=== PATIENT | female | born 1985 | race African-American/Black ===

== ENCOUNTER 2022-04-12 18:23 | Emergency (ER) | payer OTHER ==
[2022-04-12 18:33] VITALS: BP 107/71; PULSE 72; RESP 18; TEMP 98; BMI 32.8
[2022-04-12] MEDS ORDERED: SODIUM CHLORIDE 1,000 ML IV STA (20:05)
[2022-04-12] MEDS ORDERED: FAMOTIDINE 20 MG/50 ML IVPB 20 MG/50 ML MG IVPB ONE ×2 (20:23→20:48)
[2022-04-12] MEDS ORDERED: MAG HYDROX/AL HYDROX/SIMETH 30 ML UNIT-DOSE CUP PO ONE (20:23)
[2022-04-12] MEDS ORDERED: MAG HYDROX/AL HYDROX/SIMETH 30 ML UNIT-DOSE CUP ONE (20:48)
[2022-04-12 20:53] LABS: BASO % 1.1 % (0-2.0); HEMATOCRIT 34.7 % (32.4-45.2); HEMOGLOBIN 10.9 GM/dL (10.7-15.3); LYMPH % 27.5 % (8-40); MCHC 31.4 g/dl (32.0-36.0); MEAN CELL VOLUME 73.1 fl (80-96); MEAN PLT VOLUME 7.5 fl (7.5-11.1); MONO % 12.3 % (3.8-10.2); NEUT % 57.1 % (42.8-82.8); PLATELET COUNT 273 10^3/uL (134-434); RBC 4.75 M/mm3 (3.60-5.2); RDW 15.6 % (11.6-15.6); WHITE BLOOD COUNT 7.3 K/mm3 (4.0-10.0)
[2022-04-12 20:57] LABS: EPI CELLS >36 /uL (0-25.1); HYALINE CASTS 4 /uL (0-3.1); PH,URINE 6.5 (5.0-8.0); URINE APPEARANCE CLOUDY; URINE BACTERIA 668 /uL (0-1359); URINE BILIRUBIN NEGATIVE (NEGATIVE); URINE COLOR DK YELLOW; URINE GLUCOSE (UA) NEGATIVE (NEGATIVE); URINE KETONE TRACE (NEGATIVE); URINE LEUK ESTERASE 1+ (NEGATIVE); URINE NITRITE NEGATIVE (NEGATIVE); URINE PROTEIN TRACE (NEGATIVE); URINE RBC 18 /uL (0-23.9); URINE WBC 57 /uL (0-25.8)
[2022-04-12 21:08] LABS: ALBUMIN 3.3 g/dl (3.4-5.0); BLOOD UREA NITROGEN 30.1 mg/dL (7-18); MAGNESIUM 2.4 mg/dL (1.8-2.4)
[2022-04-12 21:09] LABS: CREATININE 1.8 mg/dL (0.55-1.3)
[2022-04-12 21:11] LABS: BILIRUBIN,TOTAL 0.4 mg/dL (0.2-1); TOT PROT 7.5 g/dl (6.4-8.2)
[2022-04-12 23:23] LABS: YEAST NONE SEEN (NEGATIVE)
[2022-04-12 23:24] LABS: URINE CRYSTALS 0-2 /hpf
== END 2022-04-13 02:40 | disposition left against medical advice (07) ==
LOC: JER 18:23
PROC: 3E033GC Introduction of Other Therapeutic Substance into Peripheral Vein, Percutaneous Approach (ICD-10-PCS; principal; 2022-04-12)
PROC: 3E0337Z Introduction of Electrolytic and Water Balance Substance into Peripheral Vein, Percutaneous Approach (ICD-10-PCS; 2022-04-12)
DX: R10.9 Unspecified abdominal pain (principal)
CPT/HCPCS: 36415; 74176-TC; 76705-TC; 80053; 81003; 83690; 83735; 85025; 87086; 87186; 99285-25; C9803-CS; U0003; U0005